=== PATIENT | female | born 1960 | race Caucasian/White ===

== ENCOUNTER 2020-04-04 17:45 | Emergency (ER) | payer OTHER ==
--- NOTE | 2020-04-04 17:53 | PDOC ---
Rapid Medical Evaluation Time Seen by Provider: 04/04/20 17:50 Medical Evaluation: Allergies Allergy/AdvReac Type Severity Reaction Status Date / Time No Known Allergies Allergy Verified 09/10/19 09:33 04/04/20 17:51 60 year old female with pmhx of HTN presenting to the ED s/p MARLENY with L wrist pain PE: obvious deformity to left wrist 2+ radial pulse Plan XR Pain meds Pt to precede to ED for further treatment
[2020-04-04 17:55] VITALS: BP 174/93; PULSE 69; TEMP 98.6; BMI 37.0
--- OUTSIDE RECORDS SUMMARY | 2020-04-04 18:27 | XMS ---
:1960 Author Organization [facility] Support Name Relationship Address Phone UE, UNEMPLOYED Unavailable Unavailable Unavailable UE Unavailable Unavailable Unavailable SANCHEZ BIRD SON [address] [place] [address] SANCHEZ BIRD Child [address] [place] [address] BAKARI BIRD Unavailable SAME ABOVE Re-disclosure Warning The records that you are about to access may contain information from federally- assisted alcohol or drug abuse programs. If such information is present, then the following federally mandated warning applies: This information has been disclosed to you from records protected by federal confidentiality rules (42 CFR part 2). The federal rules prohibit you from making any further disclosure of this information unless further disclosure is expressly permitted by the written consent of the person to whom it pertains or as otherwise permitted by 42 CFR part 2. A general authorization for the release of medical or other information is NOT sufficient for this purpose. The Federal rules restrict any use of the information to criminally investigate or prosecute any alcohol or drug abuse patient.The records that you are about to access may contain highly sensitive health information, the redisclosure of which is protected by Article 27-F of the [facility] Public Health law. If you continue you may haveaccess to information: Regarding HIV / AIDS; Provided by facilities licensed or operated by the [facility] Office of Mental Health; or Provided by the [facility] Office for People With Developmental Disabilities. If such information is present, then the following [facility] mandated warning applies: This information has been disclosed to you from confidential records which are protected by state law. State law prohibits you from making any further disclosure of this information without the specific written consent of the person to whom it pertains, or as otherwise permitted by law. Any unauthorized further disclosure in violation of state law may result in a fine or skilled nursing sentence or both. A general authorization for the release of medical or other information is NOT sufficient authorization for further disclosure. Encounters Encounter Providers Location Date Indications Data Source(s ) New Patient [facility] 02/18/2019 eCW3 ([facility] son Initial [facility] A28 12:00:00 AM [facility] Medical Nutrition EDT - Care) 02/18/2019 12:00:00 AM EDT Outpatient [facility] 02/13/2019 eCW3 ([facility] on Care Clinic A28 12:00:00 AM [facility] - [facility]) 02/13/2019 12:00:00 AM EDT Medications Medication Brand Start Product Dose Route Administrative Pharmacy [facility] Indications Reaction Description Data Name Date Form Instructions Instructions Source(s) ferrous Ferrou 0 active Ferrous eCW 3 sulfate 325 s 2020 {tabl Sulfate 325 ([facility] Delayed Sulfat 12:00: et} (65 Fe) [facility] Release e 325 00 AM Health Oral Tablet (65 EDT Care) Ferrous Fe) MG Sulfate 325 (65 Fe) MG ferrous Ferrou active Ferrous eCW 3 sulfate 325 s 2020 {tabl Sulfate 325 ([facility] Delayed Sulfat 12:00: et} (65 Fe) MG [facility] Release e 325 00 AM Health Oral Tablet (65 EDT Care) Ferrous Fe) MG Sulfate 325 (65 Fe) MG Docusate Colace 0 active Colace 100 eCW3 Sodium 100 100 MG 2020 {caps MG ([place] [facility] Oral 12:00: ule_a [facility] Capsule 00 AM s_[facility] Health [Colace] EDT ded} Care) Colace 100 MG Docusate Colace 0 active Colace 100 eCW3 Sodium 100 100 MG 2020 {caps MG ([place] [facility] Oral 12:00: ule_a [facility] Capsule 00 AM [facility] [Colace] EDT ded} Care) Colace 100 MG Insurance Providers Payer name Policy type Policy ID Covered Covered green party's Policy P iwona / Coverage green party ID relationship to [facility] Inf ormation type doyle ESAU [id number] SP [id number] [facility] HEALTH NON CAP MEDICAID [id number] SP [id number] MEDICAID [id number] SP [id number] Problems, Conditions, and Diagnoses Code Display Name Description Problem Type Effective Data Sour ce(s) Dates N28.89 Mass of right Mass of right Problem 12/24/2019 eCW3 ([facility] 12:00:00 AM [facility] EDT Care) E78.2 Elevated Elevated Problem 02/13/2019 eCW3 ([place] triglycerides with triglycerides with 12:00:00 AM [facility] high cholesterol high cholesterol EDT Ca re) E78.2 Elevated Elevated Problem 02/13/2019 eCW3 ([facility] triglycerides with triglycerides with 12:00:00 AM [facility] high cholesterol high cholesterol EDT Ca re) Results ID Date Data Source [id number] 11/16/2019 02:00:00 AM EDT [facility] Name Value Range Interpretation Description Data Sup porting Code Source(s) Document(s ) SARS [facility] CORONAVIRUS 2 RNA This lab was ordered by [facility] and reported by [facility]. Procedure Vital Signs ID Date Data Source UNK Name Value Range Interpretation Code Description Data Source(s) Body mass index 44.57 kg/m2 44.57 kg/m2 eCW3 ([facility] ud[facility] (BMI) [Ratio] [facility]) Body weight 206 [lb_av] 206 [lb_av] eCW3 ([facility]) Body height 57 [in_i] 57 [in_i] eCW3 ([facility]) Diastolic blood 75 mm[Hg] 75 mm[Hg] eCW3 ([facility]) Systolic blood 114 mm[Hg] 114 mm[Hg] eCW3 ([facility]) Body temperature 98.2 [degF] 98.2 [degF] eCW3 ( [facility]) Heart rate 20 /min 20 /min eCW3 ([facility]) Body mass index 44.57 kg/m2 44.57 kg/m2 eCW3 ([facility] (BMI) [Ratio] [facility]) Body weight 206 [lb_av] 206 [lb_av] eCW3 ([facility]) Body height 57 [in_i] 57 [in_i] eCW3 ([facility]) Patient Treatment Plan of Care Planned Activity Planned Date Details Description Data Source (s) ferrous sulfate 325 MG 12/24/2019 12:00:00 eCW3 ([facility] Delayed Release Oral [facility]) Tablet Docusate Sodium 100 MG 12/24/2019 12:00:00 eCW3 ([facility] Oral Capsule [Colace] [facility]) ferrous sulfate 325 MG 12/24/2019 12:00:00 eCW3 ([facility] Delayed Release Oral [facility]) Tablet Docusate Sodium 100 MG 12/24/2019 12:00:00 eCW3 ([facility] Oral Capsule [Colace] [facility])
--- NOTE | 2020-04-04 18:31 | PDOC ---
History of Present Illness - General Chief Complaint: Injury Stated Complaint: RT HAND INJURY Time Seen by Provider: 04/04/20 17:50 - History of Present Illness Initial Comments: 04/04/20 18:29 60-year-old female with a past medical history of hypertension presents for evaluation of right wrist pain after a fall on outstretched hand while feeding a cat. She did not hit her head. Past History - Medical History Allergies/Adverse Reactions: Allergies Allergy/AdvReac Type Severity Reaction Status Date / Time No Known Allergies Allergy Verified 04/04/20 17:52 Home Medications: Ambulatory Orders Atorvastatin Ca [Lipitor] 40 mg PO HS 30 Days #30 tablet 09/10/19 Fluticasone Propionate [Flovent Hfa] 2 puff IH BID 09/10/19 Docusate Sodium [Colace -] 100 mg PO DAILY PRN #20 capsule 11/20/19 Ferrous Sulfate [Feosol] 325 mg PO DAILY 30 Days #30 ud 11/20/19 Lidocaine Patch Removal [Lidoderm Patch Removal] 1 each MC DAILY@2200 10 Days #10 each 11/20/19 Lisinopril [Prinivil -] 40 mg PO DAILY 30 Days #30 tablet 11/20/19 Oxycodone HCl/Acetaminophen [Percocet 5-325 mg Tablet] 1 - 2 tab PO Q6H PRN #20 tab MDD 6 04/04/20 Anemia: No Asthma: No (DENIES) Cancer: No Cardiac Disorders: (PT STATES HX OF CHEST PAIN) CVA: No COPD: No (DENIES) CHF: No Dementia: No Diabetes: No GI Disorders: No Disorders: No HTN: Yes Hypercholesterolemia: No Liver Disease: No Psychiatric Problems: Yes (anxiety) Seizures: No Thyroid Disease: No - Surgical History Abdominal Surgery: No Appendectomy: No Cardiac Surgery: No Cholecystectomy: No Lung Surgery: No Neurologic Surgery: No Orthopedic Surgery: No - Psycho-Social/Smoking History Smoking History: Never smoked Have you smoked in the past 12 months: No - Substance Abuse Hx (Audit-C & DAST Scrn) How often the patient has a drink containing alcohol: Never Score: In Men: 4 or > Positive; In Women: 3 or > Positive: 0 Screen Result (Pos requires Nsg. Audit-10AR): Negative In the last yr the pt used illegal drug/Rx for NonMed reason: No Score: Yes response is considered Positive: 0 Screen Result (Positive result requires Nsg. DAST-10): Negative Review of Systems - Review of Systems Musculoskeletal: Yes: Joint Pain *Physical Exam - Vital Signs Last Vital Signs Temp Pulse Resp BP Pulse Ox 98.6 F 69 18 174/93 H 100 04/04/20 17:52 04/04/20 17:52 04/04/20 17:52 04/04/20 17:52 04/04/20 17:52 - Physical Exam 04/04/20 18:29 Swelling and mild deformity at the dorsum of the right wrist no gross sensorimotor deficits neurovascular intact tenderness at the distal radius ED Treatment Course - Medications Given in the ED: ED Medications Discontinued Medications Generic Name Dose Route Start Last Admin Trade Name Freq PRN Reason Stop Dose Admin Oxycodone/Acetaminophen 1 combo 04/04/20 17:53 04/04/20 18:03 Percocet 5/325 - PO 04/04/20 17:54 1 combo ONCE ONE Administration Medical Decision Making - Medical Decision Making 04/04/20 18:29 X-rays show a right wrist fracture impacted distal radius well aligned on the lateral will hold off on reduction for now. Sugar tong splint applied patient neurovascular intact post splint application patient to follow-up with orthopedics prescription for Percocet sent to pharmacy I have reviewed the pathophysiology with the patient. They are in agreement with the treatment plan all questions were answered to their satisfaction. Understanding for follow-up without fail was also conveyed to the patient. Again they are in agreement. Discharge - Discharge Information Problems reviewed: Yes Clinical Impression/Diagnosis: Right wrist fracture Condition: Stable Disposition: HOME - Admission No - Additional Discharge Information Prescriptions: Oxycodone HCl/Acetaminophen [Percocet 5-325 mg Tablet] 1 - 2 tab PO Q6H PRN #20 tab MDD 6 PRN Reason: Pain - Follow up/Referral Referrals: Jesus Alberto Sheridan DO [Staff Physician] - - Patient Discharge Instructions Additional Instructions: Please keep the splint in place until seen by orthopedic surgery. Please only take the Percocet as prescribed do not take any other medications on top of it. No Advil Motrin Aleve or ibuprofen. No additional Tylenol. Please keep the arm elevated above the level of the heart to help reduce swelling return to the emergency room for worsening symptoms and without fail follow-up with orthopedic surgery in 1 to 2 days for further evaluation and treatment options. You must follow-up with orthopedic surgery without fail as this fracture may require operative intervention. - Post Discharge Activity
== END 2020-04-04 18:47 | disposition home or self-care (01) ==
LOC: JERFT 17:45
DX: S62.91XA Unspecified fracture of right hand, initial encounter for closed fracture (principal)
CPT/HCPCS: 73110-TC-LT-FY; 99283-25

== ENCOUNTER 2021-08-30 15:31 | Emergency (ER) | payer OTHER ==
[2021-08-30 15:54] VITALS: BP 150/100; PULSE 94; TEMP 98; BMI 30.2
[2021-08-30] MEDS ORDERED: ACETAMINOPHEN 500 MG TABLET (FP) PO ONE (17:25)
[2021-08-30] MEDS ORDERED: ACETAMINOPHEN 500 MG TABLET (FP) ONE (17:40)
[2021-08-30 18:41] LABS: EPI CELLS >36 /uL (0-25.1); HYALINE CASTS 38 /uL (0-3.1); URINE APPEARANCE TURBID; URINE BACTERIA 1886 /uL (0-1359); URINE BILIRUBIN 2+ (NEGATIVE); URINE COLOR DK YELLOW; URINE GLUCOSE (UA) NEGATIVE (NEGATIVE); URINE KETONE 1+ (NEGATIVE); URINE LEUK ESTERASE 2+ (NEGATIVE); URINE NITRITE NEGATIVE (NEGATIVE); URINE PROTEIN 1+ (NEGATIVE); URINE RBC 8 /uL (0-23.9); URINE WBC 656 /uL (0-25.8)
== END 2021-08-30 18:53 | disposition home or self-care (01) ==
LOC: JERFT 15:31
DX: N39.0 Urinary tract infection, site not specified (principal)
CPT/HCPCS: 72170-TC-FY; 81003; 87086; 87186; 99284-25

== ENCOUNTER 2022-05-17 18:04 | Inpatient (IN) | payer OTHER ==
[2022-05-17 18:11] VITALS: BMI 32.1
[2022-05-17] MEDS ORDERED: ACETAMINOPHEN 1000 MG/100 ML BAG IVPB ONE (21:13)
[2022-05-17 21:15] LABS: BASO % 0.9 % (0-2.0); EOS % 2.6 % (0-4.5); HEMATOCRIT 28.2 % (32.4-45.2); HEMOGLOBIN 9.3 GM/dL (10.7-15.3); LYMPH % 23.7 % (8-40); MCH 28.4 pg (25.7-33.7); MCHC 33.1 g/dl (32.0-36.0); MEAN CELL VOLUME 85.8 fl (80-96); MEAN PLT VOLUME 7.8 fl (7.5-11.1); MONO % 12.5 % (3.8-10.2); NEUT % 60.3 % (42.8-82.8); PLATELET COUNT 185 10^3/uL (134-434); RBC 3.28 M/mm3 (3.60-5.2); RDW 15.9 % (11.6-15.6); WHITE BLOOD COUNT 5.1 K/mm3 (4.0-10.0)
[2022-05-17 22:21] LABS: CALCIUM 8.5 mg/dL (8.5-10.1)
[2022-05-17 22:22] LABS: ALBUMIN 2.9 g/dl (3.4-5.0); BLOOD UREA NITROGEN 33.7 mg/dL (7-18)
[2022-05-17 22:25] LABS: CREATININE 1.2 mg/dL (0.55-1.3)
[2022-05-17 22:26] LABS: BILIRUBIN,TOTAL 0.5 mg/dL (0.2-1); TOT PROT 6.5 g/dl (6.4-8.2)
[2022-05-17 22:29] LABS: N-TERMINAL BNP 522.6 pg/ml (5-125)
[2022-05-17] MEDS ORDERED: ACETAMINOPHEN INJECTION 100 ML IVPB ONE (22:37)
[2022-05-17] MEDS ORDERED: SODIUM CHLORIDE 0.9% 500 ML INFUS.BAG IV ONE (22:51)
[2022-05-18] MEDS ORDERED: CEFAZOLIN 1 GM in DEXTROSE 5%-WATER - 50 ML IVPB ONE
[2022-05-18] MEDS ORDERED: ceFAZolin SODIUM 1 GM VIAL ONE (01:39)
[2022-05-18] MEDS ORDERED: ACETAMINOPHEN 1000 MG/100 ML BAG IVPB PRN (04:30)
[2022-05-18 07:26] LABS: HEMATOCRIT 29.3 % (32.4-45.2); HEMOGLOBIN 9.6 GM/dL (10.7-15.3); MCHC 32.8 g/dl (32.0-36.0); MEAN CELL VOLUME 85.3 fl (80-96); MEAN PLT VOLUME 7.6 fl (7.5-11.1); PLATELET COUNT 179 10^3/uL (134-434); RBC 3.44 M/mm3 (3.60-5.2); RDW 15.4 % (11.6-15.6); WHITE BLOOD COUNT 4.5 K/mm3 (4.0-10.0)
[2022-05-18 07:56] LABS: CALCIUM 8.7 mg/dL (8.5-10.1)
[2022-05-18 07:57] LABS: BLOOD UREA NITROGEN 28.4 mg/dL (7-18); MAGNESIUM 2.1 mg/dL (1.8-2.4)
[2022-05-18 08:00] LABS: PHOSPHOROUS 4.4 mg/dL (2.5-4.9)
[2022-05-18 08:01] LABS: BILIRUBIN,TOTAL 0.6 mg/dL (0.2-1); TOT PROT 6.4 g/dl (6.4-8.2)
[2022-05-18] MEDS ORDERED: FUROSEMIDE 40 MG/4 ML INJECTABLE VIAL IVPUSH ONE (08:13)
[2022-05-18] MEDS ORDERED: FUROSEMIDE 40 MG/4 ML INJECTABLE VIAL ONE (08:22)
[2022-05-18] MEDS ORDERED: ENOXAPARIN NA (PORCINE) 40 MG/0.4 ML DISP.SYRIN SQ ONE (08:22)
[2022-05-18] MEDS: ENOXAPARIN NA (PORCINE) 40 MG/0.4 ML DISP.SYRIN SQ SCH (09:30)
[2022-05-18] MEDS ORDERED: CEFAZOLIN 1 GM in DEXTROSE 5%-WATER - 50 ML IVPB SCH (14:45)
[2022-05-18] MEDS ORDERED: CEFAZOLIN 1 GM in DEXTROSE 5%-WATER 100 ML IVPB SCH (14:53)
[2022-05-18] MEDS: CEFAZOLIN 1 GM in DEXTROSE 5%-WATER 100 ML IVPB SCH (16:06)
[2022-05-18] MEDS: GABAPENTIN 100 MG CAPSULE PO SCH ×2 (16:23→22:14)
[2022-05-18 22:29] VITALS: RESP 20
[2022-05-19] MEDS: CEFAZOLIN 1 GM in DEXTROSE 5%-WATER 100 ML IVPB SCH ×3 (02:37→17:30)
[2022-05-19] MEDS: GABAPENTIN 100 MG CAPSULE PO SCH ×3 (06:46→21:55)
[2022-05-19 09:47] LABS: HEMATOCRIT 28.8 % (32.4-45.2); HEMOGLOBIN 9.5 GM/dL (10.7-15.3); MCH 28.1 pg (25.7-33.7); MCHC 32.9 g/dl (32.0-36.0); MEAN CELL VOLUME 85.4 fl (80-96); MEAN PLT VOLUME 7.8 fl (7.5-11.1); PLATELET COUNT 214 10^3/uL (134-434); RBC 3.37 M/mm3 (3.60-5.2); RDW 15.3 % (11.6-15.6)
[2022-05-19] MEDS: FUROSEMIDE 40 MG/4 ML INJECTABLE VIAL IVPUSH SCH (09:56)
[2022-05-19] MEDS: ENOXAPARIN NA (PORCINE) 40 MG/0.4 ML DISP.SYRIN SQ SCH (09:56)
[2022-05-19 09:58] LABS: CALCIUM 8.6 mg/dL (8.5-10.1)
[2022-05-20] MEDS: CEFAZOLIN 1 GM in DEXTROSE 5%-WATER 100 ML IVPB SCH ×3 (01:23→18:05)
[2022-05-20] MEDS: GABAPENTIN 100 MG CAPSULE PO SCH ×3 (05:26→21:23)
[2022-05-20] MEDS: ENOXAPARIN NA (PORCINE) 40 MG/0.4 ML DISP.SYRIN SQ SCH (09:36)
[2022-05-20] MEDS: FUROSEMIDE 40 MG/4 ML INJECTABLE VIAL IVPUSH SCH (09:36)
[2022-05-20 11:14] LABS: HEMATOCRIT 30.1 % (32.4-45.2); HEMOGLOBIN 9.8 GM/dL (10.7-15.3); MCH 27.7 pg (25.7-33.7); MCHC 32.5 g/dl (32.0-36.0); MEAN CELL VOLUME 85.3 fl (80-96); MEAN PLT VOLUME 7.7 fl (7.5-11.1); PLATELET COUNT 259 10^3/uL (134-434); RBC 3.53 M/mm3 (3.60-5.2); RDW 15.5 % (11.6-15.6); WHITE BLOOD COUNT 4.2 K/mm3 (4.0-10.0)
[2022-05-20 11:25] LABS: CALCIUM 8.8 mg/dL (8.5-10.1)
[2022-05-20 11:26] LABS: BLOOD UREA NITROGEN 27.6 mg/dL (7-18)
[2022-05-20 11:29] LABS: CREATININE 1.1 mg/dL (0.55-1.3)
[2022-05-21] MEDS: CEFAZOLIN 1 GM in DEXTROSE 5%-WATER 100 ML IVPB SCH ×2 (01:12→10:06)
[2022-05-21] MEDS: GABAPENTIN 100 MG CAPSULE PO SCH (05:25)
[2022-05-21 05:53] VITALS: BP 135/71; PULSE 78; TEMP 98
[2022-05-21] MEDS: FUROSEMIDE 40 MG/4 ML INJECTABLE VIAL IVPUSH SCH (10:06)
[2022-05-21] MEDS: ENOXAPARIN NA (PORCINE) 40 MG/0.4 ML DISP.SYRIN SQ SCH (10:07)
[2022-05-21 12:05] LABS: HEMOGLOBIN 10.3 GM/dL (10.7-15.3); MCH 27.6 pg (25.7-33.7); MCHC 32.1 g/dl (32.0-36.0); MEAN CELL VOLUME 86.1 fl (80-96); MEAN PLT VOLUME 7.6 fl (7.5-11.1); PLATELET COUNT 328 10^3/uL (134-434); RBC 3.72 M/mm3 (3.60-5.2); RDW 15.6 % (11.6-15.6); WHITE BLOOD COUNT 4.8 K/mm3 (4.0-10.0)
[2022-05-21 12:42] LABS: BLOOD UREA NITROGEN 28.3 mg/dL (7-18); CALCIUM 9.1 mg/dL (8.5-10.1)
[2022-05-21 12:45] LABS: CREATININE 1.1 mg/dL (0.55-1.3)
== END 2022-05-21 13:34 | disposition home or self-care (01) | DRG 194 ==
LOC: JER 18:04 → JERBED 23:56 → J8W 05-18 14:47
PROVIDERS: ADMIT Family Medicine; ATTEND Internal Medicine
DX: I11.0 Hypertensive heart disease with heart failure (principal); J44.9 Chronic obstructive pulmonary disease, unspecified; M25.552 Pain in left hip; E78.5 Hyperlipidemia, unspecified; D64.9 Anemia, unspecified; C71.9 Malignant neoplasm of brain, unspecified; I50.31 Acute diastolic (congestive) heart failure; L03.115 Cellulitis of right lower limb; M54.50 Low back pain, unspecified
CPT/HCPCS: 0241U-QW; 36415; 71045-TC-FY; 72148-TC; 72170-TC-FY; 73502-TC-LT-FY; 73590-TC-LT-FY; 73590-TC-RT-FY; 80048; 80053; 82728; 83540; 83550; 83735; 83880; 84100; 84466; 84484; 85025; 85027; 85045; 93005; 93010; 93306-TC; 93970-TC; 97116-GP; 99285-25

== ENCOUNTER 2022-06-18 07:25 | Emergency (ER) | payer OTHER ==
[2022-06-18 08:08] VITALS: BP 143/75; PULSE 81; RESP 16; TEMP 98.9; BMI 35.2
[2022-06-18] MEDS ORDERED: LACTATED RINGERS SOLUTION 1000 ML INFUS.BAG IV ONE (09:43)
[2022-06-18] MEDS ORDERED: ACETAMINOPHEN 1000 MG/100 ML BAG IVPB ONE (09:43)
[2022-06-18] MEDS ORDERED: METOCLOPRAMIDE HCL INJECTION 10 MG/2 ML VIAL IVPB ONE (09:43)
[2022-06-18] MEDS ORDERED: ACETAMINOPHEN INJECTION 100 ML IVPB ONE (09:56)
[2022-06-18 10:36] LABS: BASO % 0.8 % (0-2.0); EOS % 2.3 % (0-4.5); HEMATOCRIT 28.7 % (32.4-45.2); HEMOGLOBIN 9.1 GM/dL (10.7-15.3); LYMPH % 22.6 % (8-40); MCH 26.6 pg (25.7-33.7); MCHC 31.8 g/dl (32.0-36.0); MEAN CELL VOLUME 83.7 fl (80-96); MEAN PLT VOLUME 8.2 fl (7.5-11.1); MONO % 7.5 % (3.8-10.2); NEUT % 66.8 % (42.8-82.8); PLATELET COUNT 243 10^3/uL (134-434); RBC 3.43 M/mm3 (3.60-5.2); RDW 15.7 % (11.6-15.6); WHITE BLOOD COUNT 6.4 K/mm3 (4.0-10.0)
[2022-06-18] MEDS ORDERED: METOCLOPRAMIDE HCL INJECTION 10 MG/2 ML VIAL ONE (10:52)
[2022-06-18 11:04] LABS: ALBUMIN 3.2 g/dl (3.4-5.0)
[2022-06-18 11:05] LABS: BLOOD UREA NITROGEN 25.2 mg/dL (7-18)
[2022-06-18 11:08] LABS: TOT PROT 7.1 g/dl (6.4-8.2)
[2022-06-18 11:10] LABS: BILIRUBIN,TOTAL 0.4 mg/dL (0.2-1)
[2022-06-18] MEDS ORDERED: PANTOPRAZOLE SODIUM 40 MG VIAL IVPUSH ONE (11:32)
[2022-06-18] MEDS ORDERED: DEXAMETHASONE SOD PHOSPHATE 20 MG/5 ML VIAL IVPB ONE (11:32)
[2022-06-18] MEDS ORDERED: DEXAMETHASONE SOD PHOSPHATE 4 MG/1 ML VIAL ONE (12:14)
[2022-06-18] MEDS ORDERED: PANTOPRAZOLE SODIUM 40 MG VIAL ONE (12:15)
== END 2022-06-18 15:15 | disposition short-term general hospital (02) ==
LOC: JER 07:25
PROC: 3E0333Z Introduction of Anti-inflammatory into Peripheral Vein, Percutaneous Approach (ICD-10-PCS; principal; 2022-06-18)
PROC: 3E0333Z Introduction of Anti-inflammatory into Peripheral Vein, Percutaneous Approach (ICD-10-PCS; 2022-06-18)
PROC: 3E033GC Introduction of Other Therapeutic Substance into Peripheral Vein, Percutaneous Approach (ICD-10-PCS; 2022-06-18)
PROC: 3E033GC Introduction of Other Therapeutic Substance into Peripheral Vein, Percutaneous Approach (ICD-10-PCS; 2022-06-18)
DX: R51.9 Headache, unspecified (principal); C71.9 Malignant neoplasm of brain, unspecified
CPT/HCPCS: 36415; 70450-TC; 80053; 80061; 83735; 85025; 93005; 93010; 99285-25; C9803-CS; U0003; U0005

== ENCOUNTER 2022-07-30 08:41 | Emergency (ER) | payer OTHER ==
[2022-07-30 09:04] VITALS: BMI 35.3
[2022-07-30 10:51] LABS: HEMATOCRIT 26.8 % (32.4-45.2); HEMOGLOBIN 8.7 GM/dL (10.7-15.3); MCH 25.5 pg (25.7-33.7); MCHC 32.3 g/dl (32.0-36.0); MEAN CELL VOLUME 79.1 fl (80-96); PLATELET COUNT 266 10^3/uL (134-434); RBC 3.39 M/mm3 (3.60-5.2); RDW 17.3 % (11.6-15.6); WHITE BLOOD COUNT 9.5 K/mm3 (4.0-10.0)
[2022-07-30 11:01] LABS: INR 1.06 (0.83-1.09); PROTHROMBIN TIME (PATIENT) 12.3 SEC (9.7-13.0)
[2022-07-30 11:04] LABS: ACTIVATED PTT 27.6 SECONDS (25.2-36.5)
[2022-07-30 11:16] LABS: CHLORIDE 109 mmol/L (98-107); SODIUM 138 mmol/L (136-145)
[2022-07-30 11:18] LABS: ALBUMIN 2.9 g/dl (3.4-5.0); ANION GAP 7 MMOL/L (8-16); CALCIUM 8.5 mg/dL (8.5-10.1); CO2 22 mmol/L (21-32)
[2022-07-30 11:19] LABS: BLOOD UREA NITROGEN 17.8 mg/dL (7-18); GLUCOSE,RANDOM 89 mg/dL (74-106)
[2022-07-30 11:21] LABS: SGOT/AST 56 U/L (15-37); SGPT/ALT 20 U/L (13-61)
[2022-07-30 11:22] LABS: CREATININE 0.8 mg/dL (0.55-1.3)
[2022-07-30 11:23] LABS: CHOLESTEROL 209 mg/dL (50-200); TOT PROT 6.8 g/dl (6.4-8.2); TRIGLYCERIDES 147 mg/dL (0-150)
[2022-07-30 11:24] LABS: BILIRUBIN,TOTAL 0.5 mg/dL (0.2-1); LDL CHOLESTEROL (ONLY SJRH) 144 mg/dL (5-100)
[2022-07-30 11:26] LABS: ALK PHOS 136 U/L (45-117); HDL CHOLESTEROL 54 mg/dL (40-60)
[2022-07-30 12:11] VITALS: TEMP 97.9
[2022-07-30 12:43] LABS: ANISOCYTOSIS 1+; MACROCYTOSIS 0
[2022-07-30] MEDS ORDERED: ACETAMINOPHEN 500 MG TABLET (FP) PO ONE (12:48)
[2022-07-30] MEDS ORDERED: METOCLOPRAMIDE HCL 10 MG TABLET (FP) PO ONE ×2 (13:28→13:34)
[2022-07-30 14:52] VITALS: BP 162/85; PULSE 86; RESP 18
== END 2022-07-30 15:25 | disposition short-term general hospital (02) ==
LOC: JER 08:41
DX: G93.6 Cerebral edema (principal); C71.9 Malignant neoplasm of brain, unspecified; R51.9 Headache, unspecified
CPT/HCPCS: 0241U-QW; 36415; 70450-TC; 80053; 80061; 82550; 82553; 83036; 84484; 85025; 85610; 85730; 86850; 86900; 86901; 93005; 93010; 99285-25

== ENCOUNTER 2022-08-27 19:04 | Emergency (ER) | payer OTHER ==
[2022-08-27 19:28] VITALS: BP 138/80; PULSE 96; RESP 20; TEMP 98.6; BMI 31.1
[2022-08-27] MEDS ORDERED: morphine CARPU-JECT 4 MG/1 ML DISP.SYRIN IVPUSH ONE (22:30)
[2022-08-27] MEDS ORDERED: morphine SULFATE 4 MG/ML VIAL ONE (22:46)
[2022-08-27 23:11] LABS: EOS % 3.1 % (0-4.5); HEMATOCRIT 25.8 % (32.4-45.2); HEMOGLOBIN 8.1 GM/dL (10.7-15.3); MCH 25.3 pg (25.7-33.7); MCHC 31.5 g/dl (32.0-36.0); MEAN CELL VOLUME 80.4 fl (80-96); MEAN PLT VOLUME 6.8 fl (7.5-11.1); MONO % 12.6 % (3.8-10.2); NEUT % 60.3 % (42.8-82.8); PLATELET COUNT 188 10^3/uL (134-434); RBC 3.21 M/mm3 (3.60-5.2); RDW 19.8 % (11.6-15.6); WHITE BLOOD COUNT 5.3 K/mm3 (4.0-10.0)
[2022-08-27 23:17] LABS: INR 1.05 (0.83-1.09); PROTHROMBIN TIME (PATIENT) 12.2 SEC (9.7-13.0)
[2022-08-27 23:20] LABS: ACTIVATED PTT 27.6 SECONDS (25.2-36.5)
[2022-08-27 23:29] LABS: CALCIUM 8.8 mg/dL (8.5-10.1)
[2022-08-27 23:31] LABS: ALBUMIN 3.2 g/dl (3.4-5.0); BLOOD UREA NITROGEN 31.6 mg/dL (7-18)
[2022-08-27 23:33] LABS: CREATININE 0.9 mg/dL (0.55-1.3)
[2022-08-27 23:35] LABS: BILIRUBIN,TOTAL 0.6 mg/dL (0.2-1); TOT PROT 6.6 g/dl (6.4-8.2)
== END 2022-08-28 02:50 | disposition short-term general hospital (02) ==
LOC: JER 19:04
PROC: 3E033GC Introduction of Other Therapeutic Substance into Peripheral Vein, Percutaneous Approach (ICD-10-PCS; principal; 2022-08-27)
DX: M79.604 Pain in right leg (principal); C71.9 Malignant neoplasm of brain, unspecified
CPT/HCPCS: 36415; 72170-TC-FY; 73502-TC-RT-FY; 73552-TC-RT-FY; 73560-TC-RT-FY; 73590-TC-RT-FY; 80053; 85025; 85610; 85730; 96374; 99284-25; C9803-CS; U0003; U0005

== ENCOUNTER 2022-10-30 21:52 | Inpatient (IN) | payer OTHER ==
[2022-10-30 21:57] VITALS: BMI 35.9
[2022-10-30] MEDS ORDERED: ACETAMINOPHEN 1000 MG/100 ML BAG IVPB ONE (23:58)
[2022-10-31] MEDS ORDERED: ACETAMINOPHEN INJECTION 100 ML IVPB ONE (02:29)
[2022-10-31 02:53] LABS: BASO % 0.7 % (0-2.0); EOS % 1.5 % (0-4.5); HEMATOCRIT 26.5 % (32.4-45.2); HEMOGLOBIN 8.7 GM/dL (10.7-15.3); LYMPH % 24.6 % (8-40); MCH 26.1 pg (25.7-33.7); MCHC 32.9 g/dl (32.0-36.0); MEAN CELL VOLUME 79.1 fl (80-96); MEAN PLT VOLUME 7.6 fl (7.5-11.1); MONO % 11.2 % (3.8-10.2); PLATELET COUNT 275 10^3/uL (134-434); RBC 3.35 M/mm3 (3.60-5.2); RDW 17.1 % (11.6-15.6); WHITE BLOOD COUNT 7.2 K/mm3 (4.0-10.0)
[2022-10-31 03:13] LABS: CALCIUM 9.8 mg/dL (8.5-10.1)
[2022-10-31 03:14] LABS: ALBUMIN 3.4 g/dl (3.4-5.0); BLOOD UREA NITROGEN 42.4 mg/dL (7-18)
[2022-10-31 03:17] LABS: CREATININE 1.1 mg/dL (0.55-1.3)
[2022-10-31 03:19] LABS: BILIRUBIN,TOTAL 0.4 mg/dL (0.2-1); TOT PROT 7.3 g/dl (6.4-8.2)
[2022-10-31 06:24] LABS: HEMATOCRIT 26.1 % (32.4-45.2); HEMOGLOBIN 8.8 GM/dL (10.7-15.3); MCH 26.5 pg (25.7-33.7); MCHC 33.9 g/dl (32.0-36.0); MEAN CELL VOLUME 78.2 fl (80-96); MEAN PLT VOLUME 7.7 fl (7.5-11.1); PLATELET COUNT 252 10^3/uL (134-434); RBC 3.33 M/mm3 (3.60-5.2)
[2022-10-31 06:37] LABS: POTASSIUM 3.7 mmol/L (3.5-5.1)
[2022-10-31 06:39] LABS: BLOOD UREA NITROGEN 38.8 mg/dL (7-18); MAGNESIUM 2.1 mg/dL (1.8-2.4)
[2022-10-31 06:42] LABS: CREATININE 1.1 mg/dL (0.55-1.3); PHOSPHOROUS 5.4 mg/dL (2.5-4.9)
[2022-10-31 08:25] LABS: RETICULOCYTES 1.26 % (0.5-1.5)
[2022-10-31] MEDS ORDERED: TIZANIDINE HCL 2 MG TABLET PO PRN (09:46)
[2022-10-31] MEDS ORDERED: FERROUS SO4 325 MG TABLET (FP) PO SCH (10:00)
[2022-10-31] MEDS: LISINOPRIL 10 MG TABLET PO SCH (11:22)
[2022-10-31] MEDS: ENOXAPARIN NA (PORCINE) 40 MG/0.4 ML DISP.SYRIN SQ SCH (11:22)
[2022-10-31] MEDS: FOLIC ACID 1 MG TABLET (FP) PO SCH (11:23)
[2022-10-31] MEDS: PANTOPRAZOLE 40 MG TABLET PO SCH (11:23)
[2022-10-31] MEDS: ASCORBIC ACID 250 MG TABLET (FP) PO SCH (14:14)
[2022-11-01] MEDS: ACETAMINOPHEN 325 MG TABLET (FP) PO PRN (01:40)
[2022-11-01] MEDS: SODIUM CHLORIDE 1,000 ML IV SCH (09:36)
[2022-11-01] MEDS: ENOXAPARIN NA (PORCINE) 40 MG/0.4 ML DISP.SYRIN SQ SCH (11:50)
[2022-11-01] MEDS: FOLIC ACID 1 MG TABLET (FP) PO SCH (11:52)
[2022-11-01] MEDS: PANTOPRAZOLE 40 MG TABLET PO SCH (11:52)
[2022-11-01] MEDS: LISINOPRIL 10 MG TABLET PO SCH (11:52)
[2022-11-01] MEDS: ASCORBIC ACID 250 MG TABLET (FP) PO SCH (11:53)
[2022-11-01 12:05] LABS: HEMATOCRIT 24.9 % (32.4-45.2); HEMOGLOBIN 8.5 GM/dL (10.7-15.3); LYMPH % 24.3 % (8-40); MCH 26.6 pg (25.7-33.7); MCHC 34.1 g/dl (32.0-36.0); MEAN PLT VOLUME 7.8 fl (7.5-11.1); MONO % 10.2 % (3.8-10.2); NEUT % 61.5 % (42.8-82.8); PLATELET COUNT 249 10^3/uL (134-434); RBC 3.19 M/mm3 (3.60-5.2); RDW 17.1 % (11.6-15.6); WHITE BLOOD COUNT 5.6 K/mm3 (4.0-10.0)
[2022-11-01 12:08] LABS: POTASSIUM 3.7 mmol/L (3.5-5.1)
[2022-11-01 12:12] LABS: BLOOD UREA NITROGEN 25.1 mg/dL (7-18)
[2022-11-01 12:14] LABS: CREATININE 0.9 mg/dL (0.55-1.3); PHOSPHOROUS 4.4 mg/dL (2.5-4.9)
[2022-11-01 12:16] LABS: BILIRUBIN,TOTAL 0.4 mg/dL (0.2-1); TOT PROT 6.6 g/dl (6.4-8.2)
[2022-11-02] MEDS: SODIUM CHLORIDE 1,000 ML IV SCH ×2 (02:55→09:37)
[2022-11-02] MEDS: ASCORBIC ACID 250 MG TABLET (FP) PO SCH (09:42)
[2022-11-02] MEDS: ENOXAPARIN NA (PORCINE) 40 MG/0.4 ML DISP.SYRIN SQ SCH (09:42)
[2022-11-02] MEDS: PANTOPRAZOLE 40 MG TABLET PO SCH (09:42)
[2022-11-02] MEDS: LISINOPRIL 10 MG TABLET PO SCH (09:43)
[2022-11-02] MEDS: FOLIC ACID 1 MG TABLET (FP) PO SCH (09:43)
[2022-11-02] MEDS: FERROUS SO4 325 MG TABLET (FP) PO SCH ×2 (09:43→09:44)
[2022-11-03] MEDS: ACETAMINOPHEN 325 MG TABLET (FP) PO PRN ×2 (00:07→17:46)
[2022-11-03] MEDS: ASCORBIC ACID 250 MG TABLET (FP) PO SCH (10:08)
[2022-11-03] MEDS: PANTOPRAZOLE 40 MG TABLET PO SCH (10:08)
[2022-11-03] MEDS: LISINOPRIL 10 MG TABLET PO SCH (10:08)
[2022-11-03] MEDS: ENOXAPARIN NA (PORCINE) 40 MG/0.4 ML DISP.SYRIN SQ SCH (10:08)
[2022-11-03] MEDS: FOLIC ACID 1 MG TABLET (FP) PO SCH (10:08)
[2022-11-03 10:37] LABS: BASO % 0.7 % (0-2.0); EOS % 5.1 % (0-4.5); HEMATOCRIT 27.9 % (32.4-45.2); LYMPH % 21.8 % (8-40); MCH 25.3 pg (25.7-33.7); MCHC 32.3 g/dl (32.0-36.0); MEAN CELL VOLUME 78.5 fl (80-96); MEAN PLT VOLUME 7.2 fl (7.5-11.1); MONO % 8.6 % (3.8-10.2); NEUT % 63.8 % (42.8-82.8); PLATELET COUNT 216 10^3/uL (134-434); RBC 3.56 M/mm3 (3.60-5.2); WHITE BLOOD COUNT 5.6 K/mm3 (4.0-10.0)
[2022-11-03 10:59] LABS: POTASSIUM 3.7 mmol/L (3.5-5.1)
[2022-11-03 11:00] LABS: CALCIUM 9.2 mg/dL (8.5-10.1)
[2022-11-03 11:01] LABS: BLOOD UREA NITROGEN 13.2 mg/dL (7-18)
[2022-11-03 11:04] LABS: CREATININE 0.8 mg/dL (0.55-1.3)
[2022-11-03] MEDS ORDERED: oxyCODONE HCL 5 MG TABLET PO PRN (12:32)
[2022-11-03] MEDS: SODIUM CHLORIDE 1,000 ML IV SCH ×2 (12:54→23:49)
[2022-11-04] MEDS: PANTOPRAZOLE 40 MG TABLET PO SCH (09:39)
[2022-11-04] MEDS: FOLIC ACID 1 MG TABLET (FP) PO SCH (09:39)
[2022-11-04] MEDS: FERROUS SO4 325 MG TABLET (FP) PO SCH (09:39)
[2022-11-04] MEDS: LISINOPRIL 10 MG TABLET PO SCH (09:39)
[2022-11-04] MEDS: ASCORBIC ACID 250 MG TABLET (FP) PO SCH (09:39)
[2022-11-04] MEDS: ENOXAPARIN NA (PORCINE) 40 MG/0.4 ML DISP.SYRIN SQ SCH (09:40)
[2022-11-05] MEDS: ACETAMINOPHEN 325 MG TABLET (FP) PO PRN ×2 (00:46→09:53)
[2022-11-05] MEDS: SODIUM CHLORIDE 1,000 ML IV SCH ×3 (00:47→07:45)
[2022-11-05] MEDS: ASCORBIC ACID 250 MG TABLET (FP) PO SCH (09:51)
[2022-11-05] MEDS: LISINOPRIL 10 MG TABLET PO SCH (09:51)
[2022-11-05] MEDS: ENOXAPARIN NA (PORCINE) 40 MG/0.4 ML DISP.SYRIN SQ SCH (09:51)
[2022-11-05] MEDS: PANTOPRAZOLE 40 MG TABLET PO SCH (09:51)
[2022-11-05] MEDS: FOLIC ACID 1 MG TABLET (FP) PO SCH (09:51)
[2022-11-05 17:38] VITALS: PULSE 79; TEMP 99.1
[2022-11-05 18:35] VITALS: BP 133/68; RESP 18
== END 2022-11-05 18:00 | disposition short-term general hospital (02) | DRG 343 ==
LOC: JER 21:52 → INTOOBSV 10-31 02:20 → JERBED 10-31 02:20 → J5S 10-31 07:47 → OBSVTOIN 11-02 09:57
PROVIDERS: ADMIT Internal Medicine; ATTEND Internal Medicine
DX: C79.51 Secondary malignant neoplasm of bone (principal); G93.6 Cerebral edema; N17.9 Acute kidney failure, unspecified; C79.31 Secondary malignant neoplasm of brain; I10 Essential (primary) hypertension; J44.9 Chronic obstructive pulmonary disease, unspecified; F32.A Depression, unspecified; F41.9 Anxiety disorder, unspecified; D50.9 Iron deficiency anemia, unspecified; C64.1 Malignant neoplasm of right kidney, except renal pelvis; R91.1 Solitary pulmonary nodule; Z72.0 Tobacco use
CPT/HCPCS: 0241U-QW; 36415; 70450-TC; 70553-TC; 72148-TC; 73502-TC-RT-FY; 73552-TC-RT-FY; 73562-TC-RT-FY; 73590-TC-RT-FY; 76775-TC; 80048; 80053; 82728; 83540; 83550; 83735; 84100; 85025; 85027; 85045; 85379; 93005; 93010; 93970-TC; 93971-TC; 97116-GP; 97162-GP; 99285-25; C9803-CS; G0378; U0003; U0005